=== PATIENT | male | born 1960 ===

== ENCOUNTER 2016-10-21 06:09 | Day surgery (SDC) | payer OTHER ==
[~2016-10-21] VITALS: Ht 180.3 cm; Wt 77.1 kg
[2016-10-21] VITALS (9 sets, daily range): BP systolic 113–123; BP diastolic 60–74
[~2016-10-21 06:09] MED LIST: ASPIRIN81 MG ORAL
--- NOTE | 2016-10-21 06:47 | Anethesia Preoperative Eval ---
Anesthesia Pre-op PMH/ROS General Date of Evaluation: October 21, 2016 Anesthesiologist: Caleb ASA Score: ASA 1 Mallampati Score Class I : Soft palate, uvula, fauces, pillars visible Class II: Soft palate, uvula, fauces visible Class III: Soft palate, base of uvula visible Class IV: Only hard plate visible Mallampati Classification: Class II Surgeon: Linda Diagnosis: Screening Surgical Procedure: Colonoscopy Anesthesia History: none Family History: no anesthesia problems Allergies: Coded Allergies: No Known Allergies (Unverified , 10/20/16) Medications: see eMAR Past Medical History Cardiovascular: Denies: CAD, HTN, UT, arrhythmia, other, valve dz Pulmonary: Denies: COPD, DAMIAN, asthma, other Gastrointestinal/Genitourinary: Denies: CRI, ESRD, GERD, other Neurologic/Psychiatric: Denies: CVA, TIA, dementia, depression/anxiety, other Endocrine: Denies: DM, hypothyroidism, other, steroids HEENT: Denies: SQUAXIN (L), SQUAXIN (R), cataract (L), cataract (R), glaucoma, other Hematology/Immune: Denies: DVT, anemia, bleeding disorder, other Musculoskeletal/Integumentary: Denies: DDD, DJD, OA, RA, edema, other PSxH Narrative: Denies Anesthesia Pre-op Phys. Exam Physician Exam Last Vital Signs Date Time Temp Pulse Resp B/P Pulse Ox O2 Delivery O2 Flow Rate FiO2 10/21/16 06:36 98.3 67 20 113/61 95 Room Air Constitutional: NAD Cardiovascular: RRR Respiratory: CTA Airway Exam Mallampati Score: Class II MO: full ROM: full Teeth: missing, loose Anesthesia Pre-op A/P Labs see chart Studies Pre-op Studies: EKG - sr Risk Assessment & Plan Assessment: ASA I Plan: MAC Status Change Before Surgery: No Pre-Antibiotics Drug: N/A ECTOR KINSEY M.D. October 21, 2016 06:47
[2016-10-21] MEDS ORDERED: LR 1000ml 1,000 ML IVLG SCH ×2 (06:53→07:00)
[2016-10-21] MEDS ORDERED: Lidocaine 1% MPF 10mg/ml 5ml ONE (07:00)
[2016-10-21] MEDS ORDERED: Propofol 10mg/ml 20ml IV ONE (07:00)
[2016-10-21] MEDS ORDERED: DiphenhydrAMINE 50mg/ml Inj IVP PRN (07:00)
--- NOTE | 2016-10-21 07:10 | Pre-Procedure Note/Attestation ---
Pre-Procedure Note/Attestation Complete Prior to Procedure Planned Procedure: not applicable Procedure Narrative: colon Indications for Procedure Pre-Operative Diagnosis: h/o colon polyp Attestation I attest that I discussed the nature of the procedure; its benefits; risks and complications; and alternatives (and the risks and benefits of such alternatives ), prior to the procedure, with the patient (or the patient's legal accounting representative). I attest that, if there was a reasonable possibility of needing a blood transfusion, the patient (or the patient's legal accounting representative) was given the [facility] standardized written summary, pursuant to the [place] Blood Safety Act ([place] Health and Safety Code # 1645, as amended). I attest that I re-evaluated the patient just prior to the surgery and that there has been no change in the patient's H&P, except as documented below: SEFERINO FRITZ October 21, 2016 07:10
--- NOTE | 2016-10-21 07:36 | Immediate Post-Op Evaluation ---
Immediate Post-Op Evalulation Immediate Post-Op Evalulation Procedure: Colonoscopy Date of Evaluation: October 21, 2016 Time of Evaluation: 07:39 IV Fluids: 300 Blood Products: 0 Estimated Blood Loss: 0 Urinary Output: 0 Blood Pressure Systolic: 119 Blood Pressure Diastolic: 81 Pulse Rate: 73 Respiratory Rate: 16 O2 Sat by Pulse Oximetry: 99 Temperature (Fahrenheit): 97.4 Pain Score (1-10): 0 Nausea: No Vomiting: No Complications 0 Patient Status: awake, reacts, patent, none Hydration Status: adequate Drug: N/A ECTOR KINSEY M.D. October 21, 2016 07:36
--- NOTE | 2016-10-21 07:38 | Endoscopy Procedure Note ---
Endoscopy Procedure Note Indication for Procedure: h/o polyps Procedures Performed: colonoscopy Operative Findings/Diagnosis: dim cecum polyp vs fold - bx, mild sig tics Specimen: yes Pt Tolerated Procedure Well: Yes Estimated Blood Loss: none Anesthesiologist: present Anesthesia: MAC Medication Given: see anesthesia record Implant(s) used?: No 50 yrs or older w/o bx or poly: No 10yrs. F/U not recommended: No If not recommended, why?: Above average risk 10 yrs. F/U needed: No 18 years or older w/prev. colo: Yes <3yrs. since last colonoscopy: No Med reason:<3 yrs.: System Reason:<3 yrs.: Last colonoscopy >= to 3yrs: Yes SEFERINO FRITZ October 21, 2016 07:38
--- NOTE | 2016-10-21 07:40 | Brief Operative Note ---
Immediate Post Operative Note Operative Note Chief Complaint: h/o polyp Pre-op Diagnosis: h/o colon polyp Procedure: colon bx Post-op Diagnosis: cecum polyp vs fold, sig tics Post-op Diagnosis: same as pre-op Surgeon: nicolas Anesthesiologist: see report Anesthesia: moderate sedation Specimen: yes Complications: none Condition: stable Estimated Blood Loss: none Drains: none Implant(s) used?: No SEFERINO FRITZ October 21, 2016 07:40
--- NOTE | 2016-10-21 07:41 | Short Stay Surgery H&P ---
History of Present Illness History of Present Illness Chief Complaint see typed H&P HPI [place] is a 56 year old male who was admitted on for Colon Polyps Patient History Allergies: Coded Allergies: No Known Allergies (Unverified , 10/20/16) PAST MEDICAL HISTORY: Past Surgeries: Social History: Medication History Scheduled Aspirin* (Aspirin*), 81 MG ORAL DAILY, (Reported) Physical Exam Vital Signs Last Vital Signs Date Time Temp Pulse Resp B/P Pulse Ox O2 Delivery O2 Flow Rate FiO2 10/21/16 06:36 98.3 67 20 113/61 95 Room Air Plan Attestation Are the patient's medical conditions optimized for surgery? SEFERINO FRITZ October 21, 2016 07:41
--- NOTE | 2016-10-21 10:08 | 48 Hour Post Anesthesia Eval ---
Post Anesthesia Evaluation Procedure: Colonoscopy Date of Evaluation: October 21, 2016 Time of Evaluation: 10:00 Blood Pressure Systolic: 118 0: 73 Pulse Rate: 65 Respiratory Rate: 18 Temperature (Fahrenheit): 97.2 O2 Sat by Pulse Oximetry: 98 Airway: patent Nausea: No Vomiting: No Pain Intensity: 0 Hydration Status: adequate Cardiopulmonary Status: at baseline Mental Status/LOC: patient returned to baseline Post-Anesthesia Complications: 0 Follow-up care needed: ready to discharge ECTOR KINSEY M.D. October 21, 2016 10:08
--- NOTE | 2016-10-21 21:49 | Operative Note - Dictated ---
GASTROENTEROLOGY PROCEDURE REPORT: DATE OF PROCEDURE: 10/21/2016 PROCEDURE: Colonoscopy with biopsy. SURGEON: Baljit Mckeon M.D. ANESTHESIA: Please see the separate anesthesiologist notes for details. PRE-ENDOSCOPIC DIAGNOSIS: History of colonic polyps. POST-ENDOSCOPIC DIAGNOSES: 1. Diminutive polyp versus fold in the cecum status post biopsy removal. 2. Mild sigmoid diverticulosis. PROCEDURE: The procedure, its risks, indications, alternatives, and possible complications including, but not limited to, bleeding, infection, perforation, , and anesthesia complications were explained to the patient and informed consent was obtained. The patient was then sedated in the left lateral decubitus position and rectal exam was done. The colonoscope was introduced in the rectum and advanced to the cecum without difficulty. The cecum was identified by the appearance of the ileocecal valve and appendiceal orifice. Diminutive polyp slightly thickened fold was seen through this area which was biopsied off. The colonoscope was then gradually withdrawn and the mucosa examined carefully. Examination of the sigmoid mucosa revealed mild diverticulosis. Retroflexed view of the rectum, rectum was unremarkable. The colonoscope was removed and the patient was sent to recovery in good condition. COMPLICATIONS: None. RECOMMENDATIONS: 1. Follow up biopsy results. 2. High-fiber diet. 3. Outpatient followup. Baljit Mckeon M.D. DR: Felisa JOB#: [id number] CC:
== END 2016-10-21 09:45 | disposition home or self-care (01) ==
LOC: GAS 06:09
DX: D12.0 Benign neoplasm of cecum (principal); K57.30 Diverticulosis of large intestine without perforation or abscess without bleeding; Z86.010 Personal history of colon polyps
CPT/HCPCS: 45380; J2704; 94003; 94150